=== PATIENT | female | born 1945 | race Caucasian/White ===

== ENCOUNTER 2016-09-28 17:42 | Emergency (ER) | payer MEDICARE ==
[~2016-09-28] VITALS: Ht 157.4 cm; Wt 45.4 kg
[~2016-09-28 17:42] MED LIST: AMPICILLIN500 MG PO; B121000 MCG/1 IM; BACTRIM DS 8001 TA1 PO; CIPRO250 MG PO; CIPROFLOXACIN500 MG PO; GABAPENTIN100 MG PO; GUAIFENESIN600 MG PO; HYDROCODONE BIT1 T11 PO; LEVAQUIN750 M1 PO; NEURONTIN300 MG PO; PREDNISONE10 MG PO; REMERON15 M2 PO; ULTRAM50 MG PO; VITAMIN D400 IU PO
[2016-09-28] MEDS ORDERED: NEURONTIN300 MG PO (17:56)
[2016-09-28 18:36] LABS: BASO % 0.5 % (0.0-1.0); EOS % 0.1 % (1.0-4.0); HEMATOCRIT 38.9 % (37.0-47.0); HEMOGLOBIN 12.5 g/dl (12.0-16.0); LYMPH # 0.7 10*3/uL (1.3-4.4); LYMPH % 8.3 % (27.0-41.0); MEAN CELL VOLUME 83.3 fl (81.0-99.0); MEAN CORPUSCULAR HGB 26.8 pg (27.0-31.0); MEAN CORPUSCULAR HGB CONC 32.1 g/dl (33.0-37.0); MEAN PLATELET VOLUME 11.2 fl (9.6-12.3); MONO # 0.3 10*3/uL (0.1-1.0); MONO % 3.8 % (3.0-9.0); NEUT # 6.8 10*3/uL (2.3-7.9); PLATELET COUNT AUTOMATED 213 10*3/uL (130-400); RED BLOOD COUNT 4.67 10*6/uL (4.10-5.10); RED CELL DISTRI WIDTH 13.4 % (0-14.5); WHITE BLOOD COUNT 7.9 10*3/uL (4.8-10.8)
[2016-09-28 18:51] LABS: ALBUMIN 3.4 gm/dl (3.1-4.5); ALKALINE PHOSPHATASE 99 U/L (45-117); BILIRUBIN, TOTAL 0.6 mg/dl (0.2-1.0); BUN 8 mg/dl (7-24); CARBON DIOXIDE 29 mmol/L (21-32); CHLORIDE 105 mmol/L (98-107); EST GLOM FILT AFRICAN AMERICAN > 60 ml/min; GLUCOSE 109 mg/dL (65-99); POTASSIUM 4.2 mmol/L (3.5-5.1); SGOT/AST 22 IU/L (3-35); SGPT/ALT 17 U/L (12-78); SODIUM 140 mmol/L (136-145)
[2016-09-28 19:46] LABS: BILIRUBIN NEGATIVE (NEGATIVE); BLOOD TRACE-INTACT (NEGATIVE); CLARITY CLEAR (CLEAR); COLOR YELLOW (YELLOW); GLUCOSE NEGATIVE (NEGATIVE); KETONE TRACE (NEGATIVE); LEUKO ESTERASE NEGATIVE (NEGATIVE); NITRITE NEGATIVE (NEGATIVE); PH 8.5 (5.0-9.0); PROTEIN NEGATIVE (NEGATIVE); SPECIFIC GRAVITY <= 1.005 (1.005-1.030); UROBILINOGEN 0.2 E.U./dl (0.2-1.0)
[2016-09-28 19:52] LABS: BACTERIA 1+
[2016-09-28 19:53] LABS: URINE REFLEX COMMENT YES (NO)
[2016-09-28] MEDS ORDERED: PERCOCET 325 MG1 TA2 PO (20:21)
[2016-09-28] MEDS ORDERED: FLOMAX0.4 MG PO (20:21)
[2016-09-28] MEDS ORDERED: ZOFRAN ODT4 MG SL (20:21)
== END 2016-09-28 20:27 | disposition home or self-care (01) ==
LOC: ED 17:42
PROVIDERS: Registered Nurse
DX: N20.0 Calculus of kidney (principal); N28.1 Cyst of kidney, acquired

== ENCOUNTER 2016-10-05 15:16 | Emergency (ER) | payer MEDICARE ==
[~2016-10-05] VITALS: Ht 157.4 cm; Wt 45.4 kg
[~2016-10-05 15:16] MED LIST changes: +FLOMAX0.4 MG PO; +PERCOCET 325 MG1 TA2 PO; +ZOFRAN ODT4 MG SL
[2016-10-05] MEDS ORDERED: ACETAMINOPHEN-O1 TAB PO (15:24)
== END 2016-10-05 17:32 | disposition home or self-care (01) ==
LOC: ED 15:16
DX: S90.31XA Contusion of right foot, initial encounter (principal); S90.01XA Contusion of right ankle, initial encounter; W01.0XXA Fall on same level from slipping, tripping and stumbling without subsequent striking against object, initial encounter; Y93.89 Activity, other specified; Y92.89 Other specified places as the place of occurrence of the external cause; Y99.8 Other external cause status

== ENCOUNTER → 2017-03-20 | Outpatient (CLI) | payer MEDICARE ==
[~2017-03-20] MED LIST changes: +ACETAMINOPHEN-O1 TAB PO
[2017-03-20 11:38] LABS: HEMATOCRIT 41.6 % (37.0-47.0); HEMOGLOBIN 13.4 g/dl (12.0-16.0); MEAN CELL VOLUME 83.9 fl (81.0-99.0); MEAN CORPUSCULAR HGB CONC 32.2 g/dl (33.0-37.0); MEAN PLATELET VOLUME 11.1 fl (9.6-12.3); RED BLOOD COUNT 4.96 10*6/uL (4.10-5.10); RED CELL DISTRI WIDTH 13.2 % (0-14.5); WHITE BLOOD COUNT 8.3 10*3/uL (4.8-10.8)
[2017-03-20 12:08] LABS: ALBUMIN 3.7 gm/dl (3.1-4.5); CREATININE 1.1 mg/dL (0.55-1.02); POTASSIUM 3.9 mmol/L (3.5-5.1); TOTAL PROTEIN 7.8 gm/dL (6.4-8.2)
[2017-03-20 12:15] LABS: THYROID STIM HORMONE (HS) 3.83 uIU/ml (0.358-4.75)
== END | disposition home or self-care (01) ==
LOC: LAB 10:44
PROVIDERS: Registered Nurse Flight
DX: Z01.818 Encounter for other preprocedural examination (principal); E55.9 Vitamin D deficiency, unspecified; Z79.899 Other long term (current) drug therapy

== ENCOUNTER 2018-02-19 12:52 | Emergency (ER) | payer MEDICARE ==
[~2018-02-19] VITALS: Ht 157.4 cm; Wt 47.6 kg
--- NOTE | ~2018-02-19 | EKG ---
[place], [place] ELECTROCARDIOGRAM REPORT NAME: JESSE VICTORIA UNIT #: [id number] ROOM: DOCTOR: EPIPHANY DRAFT REPORT BIRTHDATE: [birth year] [facility] Test Date: 2018-02-19 Test Time: 13:26:37 Pat Name: JESSE VICTORIA Department: Room: Gender: F Show Host/Hostess: Natalia Child : 1945 Requested By: MALKA BOSTON Order Number: [id number] Reading MD: Michael Amador MD Measurements Intervals [place] Rate: 109 P: 77 W[place]: 140 QRS: -54 QRSD: 100 T: 63 QT: 337 QTc: 454 Interpretive Statements Sinus tachycardia Multiform ventricular premature complexes Consider right atrial enlargement Low voltage, extremity and precordial leads Borderline ST depression, diffuse leads Baseline wander in lead(s) V5,V6 No previous ECG available for comparison Electronically Signed On 02-23-2018 12:03:48 PDT by Michael Amador MD CM:EKGRPT:ELECTROCARDIOGRAM REPORT [id number] MALKA HANLEY DRAFT REPORT MALKA BOSTON MD
[2018-02-19 13:39] LABS: BASO # 0.1 10*3/uL (0.0-0.1); BASO % 0.4 % (0.0-1.0); EOS # 0.2 10*3/uL (0.0-0.4); EOS % 1.1 % (1.0-4.0); HEMATOCRIT 44.5 % (37.0-47.0); HEMOGLOBIN 14.1 g/dl (12.0-16.0); LYMPH # 0.9 10*3/uL (1.3-4.4); LYMPH % 5.5 % (27.0-41.0); MEAN CELL VOLUME 84.9 fl (81.0-99.0); MEAN CORPUSCULAR HGB 26.9 pg (27.0-31.0); MEAN CORPUSCULAR HGB CONC 31.7 g/dl (33.0-37.0); MEAN PLATELET VOLUME 10.9 fl (9.6-12.3); MONO # 0.9 10*3/uL (0.1-1.0); MONO % 5.7 % (3.0-9.0); NEUT # 13.7 10*3/uL (2.3-7.9); PLATELET COUNT AUTOMATED 297 10*3/uL (130-400); RED BLOOD COUNT 5.24 10*6/uL (4.10-5.10); RED CELL DISTRI WIDTH 12.2 % (0-14.5); WHITE BLOOD COUNT 15.7 10*3/uL (4.8-10.8)
[2018-02-19 13:57] LABS: ALBUMIN 3.4 gm/dl (3.1-4.5); ALKALINE PHOSPHATASE 148 U/L (45-117); BUN 8 mg/dl (7-24); CHLORIDE 101 mmol/L (98-107); CREATININE 1.06 mg/dL (0.55-1.02); POTASSIUM 4.1 mmol/L (3.5-5.1); SGOT/AST 20 IU/L (3-35); SGPT/ALT 19 U/L (12-78); SODIUM 136 mmol/L (136-145); TOTAL PROTEIN 7.4 gm/dL (6.4-8.2)
[2018-02-19 14:04] LABS: TROPONIN I < 0.015 ng/ml (<0.045)
[2018-02-19] MEDS ORDERED: AVPAK AZITHROM250 MG PO (15:30)
[2018-02-19] MEDS ORDERED: PREDNISONE50 MG PO (15:30)
[2018-02-19] MEDS ORDERED: SPIRIVA -- 3018 MCG INH (15:30)
[2018-02-19] MEDS ORDERED: PROVENTIL HFA6.7 GM INH (15:30)
== END 2018-02-19 15:45 | disposition home or self-care (01) ==
LOC: ED 12:52
PROVIDERS: Emergency Medicine
DX: J44.1 Chronic obstructive pulmonary disease with (acute) exacerbation (principal); Z87.891 Personal history of nicotine dependence; Z79.899 Other long term (current) drug therapy; Z90.710 Acquired absence of both cervix and uterus

== ENCOUNTER → 2018-03-05 | Outpatient (CLI) | payer MEDICARE ==
[~2018-03-05] MED LIST changes: +AVPAK AZITHROM250 MG PO; +PREDNISONE50 MG PO; +PROVENTIL HFA6.7 GM INH; +SPIRIVA -- 3018 MCG INH
[2018-03-05 11:30] LABS: HEMATOCRIT 42.6 % (37.0-47.0); HEMOGLOBIN 13.5 g/dl (12.0-16.0); MEAN CELL VOLUME 84.2 fl (81.0-99.0); MEAN CORPUSCULAR HGB 26.7 pg (27.0-31.0); MEAN CORPUSCULAR HGB CONC 31.7 g/dl (33.0-37.0); MEAN PLATELET VOLUME 10.9 fl (9.6-12.3); RED BLOOD COUNT 5.06 10*6/uL (4.10-5.10); RED CELL DISTRI WIDTH 13.1 % (0-14.5); WHITE BLOOD COUNT 7.7 10*3/uL (4.8-10.8)
[2018-03-05 11:43] LABS: ALBUMIN 3.3 gm/dl (3.1-4.5); ALKALINE PHOSPHATASE 109 U/L (45-117); BUN 7 mg/dl (7-24); CHLORIDE 107 mmol/L (98-107); CHOLESTEROL 234 mg/dL (<200); CREATININE 1.02 mg/dL (0.55-1.02); HDL CHOLESTEROL 70 mg/dl (40-60); LDL CHOLESTEROL 128 mg/dL (9-159); SGOT/AST 21 IU/L (3-35); SGPT/ALT 21 U/L (12-78); SODIUM 141 mmol/L (136-145); TOTAL PROTEIN 7.2 gm/dL (6.4-8.2); TRIGLYCERIDES 181 mg/dl (<150); VLDL CHOLESTEROL 36 mg/dL (6-40)
== END | disposition home or self-care (01) ==
LOC: LAB 10:39
PROVIDERS: Registered Nurse Flight
DX: E78.00 Pure hypercholesterolemia, unspecified (principal); N18.3 Chronic kidney disease, stage 3 (moderate)

== ENCOUNTER 2018-04-12 16:30 | Emergency (ER) | payer MEDICARE ==
[~2018-04-12] VITALS: Wt 47.6 kg
== END 2018-04-12 19:16 | disposition home or self-care (01) ==
LOC: ED 16:30
DX: M87.851 Other osteonecrosis, right femur (principal); J44.9 Chronic obstructive pulmonary disease, unspecified; Z87.442 Personal history of urinary calculi; Z90.710 Acquired absence of both cervix and uterus; Z87.891 Personal history of nicotine dependence

== ENCOUNTER → 2018-06-04 | Outpatient (CLI) | payer MEDICARE ==
[2018-06-04 10:08] LABS: HEMATOCRIT 43.7 % (37.0-47.0); HEMOGLOBIN 13.6 g/dl (12.0-16.0); MEAN CELL VOLUME 84.9 fl (81.0-99.0); MEAN CORPUSCULAR HGB 26.4 pg (27.0-31.0); MEAN CORPUSCULAR HGB CONC 31.1 g/dl (33.0-37.0); MEAN PLATELET VOLUME 11.7 fl (9.6-12.3); RED BLOOD COUNT 5.15 10*6/uL (4.10-5.10); RED CELL DISTRI WIDTH 14.5 % (0-14.5); WHITE BLOOD COUNT 9.5 10*3/uL (4.8-10.8)
[2018-06-04 10:49] LABS: ALBUMIN 3.5 gm/dl (3.1-4.5); POTASSIUM 3.9 mmol/L (3.5-5.1); TOTAL PROTEIN 7.4 gm/dL (6.4-8.2)
[2018-06-04 10:53] LABS: CREATININE 1.18 mg/dL (0.55-1.02)
== END | disposition home or self-care (01) ==
LOC: LAB 09:25
PROVIDERS: Registered Nurse Flight
DX: E78.00 Pure hypercholesterolemia, unspecified (principal); N18.3 Chronic kidney disease, stage 3 (moderate)

== ENCOUNTER → 2019-02-04 | Outpatient (CLI) | payer MEDICARE ==
[2019-02-05 07:09] LABS: ALPHA-1-ANTITRYPSIN, SERUM 131 mg/dL (90-200)
[2019-02-07 15:06] LABS: PHENOTYPE MS (.)
== END | disposition home or self-care (01) ==
LOC: LAB 10:32
PROVIDERS: Internal Medicine Critical Care Medicine
DX: J44.9 Chronic obstructive pulmonary disease, unspecified (principal)

== ENCOUNTER → 2019-04-02 | Outpatient (CLI) | payer MEDICARE ==
[2019-04-02 11:02] LABS: HEMATOCRIT 43.1 % (37.0-47.0); HEMOGLOBIN 13.4 g/dl (12.0-16.0); MEAN CELL VOLUME 83.4 fl (81.0-99.0); MEAN CORPUSCULAR HGB 25.9 pg (27.0-31.0); MEAN CORPUSCULAR HGB CONC 31.1 g/dl (33.0-37.0); MEAN PLATELET VOLUME 11.6 fl (9.6-12.3); RED BLOOD COUNT 5.17 10*6/uL (4.10-5.10); RED CELL DISTRI WIDTH 13.9 % (0-14.5); WHITE BLOOD COUNT 6.3 10*3/uL (4.8-10.8)
[2019-04-02 11:29] LABS: ALBUMIN 3.3 gm/dl (3.1-4.5); ALKALINE PHOSPHATASE 110 U/L (45-117); BUN 5 mg/dl (7-24); CHLORIDE 110 mmol/L (98-107); CHOLESTEROL 166 mg/dL (<200); CREATININE 1.02 mg/dL (0.55-1.02); HDL CHOLESTEROL 53 mg/dl (40-60); LDL CHOLESTEROL 88 mg/dL (9-159); POTASSIUM 3.6 mmol/L (3.5-5.1); SGOT/AST 43 IU/L (3-35); SGPT/ALT 25 U/L (12-78); SODIUM 144 mmol/L (136-145); TOTAL PROTEIN 6.8 gm/dL (6.4-8.2); TRIGLYCERIDES 124 mg/dl (<150); VLDL CHOLESTEROL 25 mg/dL (6-40)
== END | disposition home or self-care (01) ==
LOC: LAB 10:31
PROVIDERS: Registered Nurse Flight
DX: E78.00 Pure hypercholesterolemia, unspecified (principal); N18.3 Chronic kidney disease, stage 3 (moderate)

== ENCOUNTER 2019-04-08 12:05 | Inpatient (IN) | payer MEDICARE ==
[~2019-04-08] VITALS: Ht 158.8 cm; Wt 44.9 kg
[2019-04-08 12:06] VITALS: BP 87/64
[2019-04-08 12:40] LABS: BILIRUBIN NEGATIVE (NEGATIVE); BLOOD TRACE-INTACT (NEGATIVE); CLARITY CLOUDY (CLEAR); COLOR YELLOW (YELLOW); GLUCOSE NEGATIVE (NEGATIVE); KETONE TRACE (NEGATIVE); LEUKO ESTERASE TRACE (NEGATIVE); NITRITE NEGATIVE (NEGATIVE); UROBILINOGEN 0.2 E.U./dl (0.2-1.0)
[2019-04-08 12:58] LABS: BACTERIA 4+
[2019-04-08 13:01] LABS: WBC 16-20 wbc/hpf (0-5)
[2019-04-08 13:02] LABS: HEMATOCRIT 45.8 % (37.0-47.0); HEMOGLOBIN 14.3 g/dl (12.0-16.0); MEAN CELL VOLUME 82.5 fl (81.0-99.0); MEAN CORPUSCULAR HGB 25.8 pg (27.0-31.0); MEAN CORPUSCULAR HGB CONC 31.2 g/dl (33.0-37.0); MEAN PLATELET VOLUME 12.5 fl (9.6-12.3); PLATELET COUNT AUTOMATED 183 10*3/uL (130-400); RED BLOOD COUNT 5.55 10*6/uL (4.10-5.10); WHITE BLOOD COUNT 11.1 10*3/uL (4.8-10.8)
[2019-04-08 13:12] LABS: ACT PARTIAL THROMBO TIME 27.5 SECONDS (20.0-32.1); INTERNATIONAL NORM RATIO 0.9 (2.0-3.5)
[2019-04-08 13:18] VITALS: BP 118/68
[2019-04-08 13:20] LABS: TOTAL CELLS COUNTED 100 #CELLS
[2019-04-08 13:21] LABS: PLATELET SUFFICIENCY NORMAL (NORMAL)
[2019-04-08 13:22] LABS: ALBUMIN 3.4 gm/dl (3.1-4.5); ALKALINE PHOSPHATASE 122 U/L (45-117); BUN 8 mg/dl (7-24); CHLORIDE 107 mmol/L (98-107); CPK 84 U/L (26-192); CREATININE 1.23 mg/dL (0.55-1.02); LIPASE 74 U/L (73-393); POTASSIUM 3.7 mmol/L (3.5-5.1); SGOT/AST 62 IU/L (3-35); SGPT/ALT 40 U/L (12-78); SODIUM 139 mmol/L (136-145); TOTAL PROTEIN 7.3 gm/dL (6.4-8.2)
[2019-04-08 13:23] LABS: TROPONIN I < 0.015 ng/ml (<0.045)
--- NOTE | 2019-04-08 13:29 | NUR ---
NOTIFIED BYLAB PTS LACTIC 2.1. DR MARTI NOTIFIED.
[2019-04-08 14:30] VITALS: BP 118/68
--- NOTE | 2019-04-08 15:20 | NUR ---
A 73, admitted to 4E, under the services of GERSON Smith DO with a diagnosis of UTI, GENERAL WEAKNESS, DEHYDRATION, PNUEMONITIS. Chief complaint is WEAKNESS, SOB. Patient arrived via from ER. Monitor applied. Initial assessment completed. Vital signs taken and recorded. GERSON SMITH DO notified of admission to the unit. Orders received. See assessment for past medical history, medications and allergies. Patient and/or family oriented to unit. 4E visitation policy reviewed. Clothing/patient valuable form completed. SIRAEL SOLIS
[2019-04-08 15:34] VITALS: BP 120/68
[2019-04-08 16:00] VITALS: BP 118/51
--- NOTE | 2019-04-08 19:44 | NUR ---
PT AWAKE IN BED, FAMILY AT BEDSIDE. NO COMPLAINTS VOICED AT PRESENT TIME. PT REQUESTING A SLEEPING PILL FOR TONIGHT. WILL REVIEW ORDERS AND NOTIFY DR OF REQUEST IF NEEDED. WILL CONTINUE TO MONITOR. CALL LIGHT IN REACH.
[2019-04-08 20:00] VITALS: BP 127/53
--- NOTE | 2019-04-08 21:11 | NUR ---
NOTIFIED OF PT'S REQUEST FOR A SLEEPING PILL. NEW ORDER RECEIVED FOR RESTORIL 15 MG QHS PRN.
--- NOTE | 2019-04-08 22:25 | NUR ---
RESTORIL NOT NEEDED AT THIS TIME. RN HAD TO WAKE PT UP TO GIVE SCHEDULED PM MEDS. WILL REASSESS NEED FOR RESTORIL AT LATER TIME.
[2019-04-09] VITALS: BP 103/58
--- NOTE | 2019-04-09 01:25 | NUR ---
PT ASLEEP IN BED. RESPIRATIONS EASY. NO S/S OF DISTRESS. WILL MONITOR. CALL LIGHT IN REACH.
[2019-04-09 06:55] LABS: HEMATOCRIT 36.5 % (37.0-47.0); HEMOGLOBIN 11.3 g/dl (12.0-16.0); MEAN CELL VOLUME 82.6 fl (81.0-99.0); MEAN CORPUSCULAR HGB 25.6 pg (27.0-31.0); MEAN PLATELET VOLUME 12.7 fl (9.6-12.3); PLATELET COUNT AUTOMATED 160 10*3/uL (130-400); RED BLOOD COUNT 4.42 10*6/uL (4.10-5.10); RED CELL DISTRI WIDTH 14.1 % (0-14.5); WHITE BLOOD COUNT 10.8 10*3/uL (4.8-10.8)
[2019-04-09 07:13] LABS: ALBUMIN 2.4 gm/dl (3.1-4.5); BUN 9 mg/dl (7-24); CHLORIDE 113 mmol/L (98-107); POTASSIUM 3.3 mmol/L (3.5-5.1); SODIUM 142 mmol/L (136-145)
[2019-04-09 07:22] LABS: ALKALINE PHOSPHATASE 78 U/L (45-117); CHOLESTEROL 94 mg/dL (<200); CREATININE 0.86 mg/dL (0.55-1.02); FREE T4 1.29 ng/dl (0.76-1.46); HDL CHOLESTEROL 47 mg/dl (40-60); LDL CHOLESTEROL 37 mg/dL (9-159); PHOSPHOROUS 1.6 mg/dL (2.5-4.9); SGOT/AST 36 IU/L (3-35); SGPT/ALT 28 U/L (12-78); THYROID STIM HORMONE (HS) 0.272 uIU/ml (0.358-4.75); TOTAL PROTEIN 5.5 gm/dL (6.4-8.2); TRIGLYCERIDES 48 mg/dl (<150); VLDL CHOLESTEROL 10 mg/dL (6-40)
[2019-04-09 07:32] LABS: PLATELET SUFFICIENCY NORMAL (NORMAL); TOTAL CELLS COUNTED 100 #CELLS
[2019-04-09 07:56] LABS: VITAMIN D, 25-HYDROXY 21.6 ng/mL (30-100)
[2019-04-09 08:00] VITALS: BP 112/54
--- NOTE | 2019-04-09 08:02 | NUR ---
Nursing screen and Occupational Therapy referral received. Thank you. Clover Peñaloza OTR/L
--- NOTE | 2019-04-09 08:03 | NUR ---
PHYSICAL THERAPY Screen received as well as orders for PT will follow, thank you Dayanna Cortes PT
--- NOTE | 2019-04-09 08:45 | NUR ---
DR ORDAZ AWARE OF NEW CONSULT.
--- NOTE | 2019-04-09 10:30 | NUR ---
Workers Compensation Claims Examiner in to talk to patient. Patient states lives at home with her son who just moved in with her from [place]. There are 14 steps in the home. Physician: Adriano Mcclain [facility]: [facility] services: none Patient's level of ADLs: MINIMAL ASSIST Patient has working utilities: yes DME: cane occasionally Follow-up physician's appointment after d/c: will be made by the hospitalist nurse director upon discharge Does patient want to access PORTAL?: no Discharge plan discussed with patient. She lives at home with her son who just moved in with her from [place]. She is independent in her ADLs and occasionally ambulates with a cane. Discussed home health care services and short term SNF and she denies either. When medically stable she will be discharged to home. Her son will provide transportation on discharge. BRYANNA GIBSON
[2019-04-09 12:00] VITALS: BP 135/60
[2019-04-09 16:00] VITALS: BP 114/61
[2019-04-09 20:00] VITALS: BP 120/66
[2019-04-10] VITALS: BP 116/63
[2019-04-10 00:30] VITALS: BP 124/61
--- NOTE | 2019-04-10 00:35 | NUR ---
PT MEDICATED WITH PO RESTORIL PER PRN ORDER FOR C/O INSOMNIA. WILL MONITOR EFFECTIVENESS. CALL LIGHT LEFT IN REACH. BED ALARM INTACT.
--- NOTE | 2019-04-10 01:30 | NUR ---
EARLIER RESTORIL APPEARS EFFECTIVE. PT ASLEEP IN BED. RESPIRATIONS EASY. NO S/S OF DISTRESS NOTED. WILL MONITOR. CALL LIGHT IN REACH.
[2019-04-10 07:30] VITALS: BP 116/60
[2019-04-10 08:18] LABS: HEMATOCRIT 37.7 % (37.0-47.0); HEMOGLOBIN 11.8 g/dl (12.0-16.0); MEAN CORPUSCULAR HGB CONC 31.3 g/dl (33.0-37.0); MEAN PLATELET VOLUME 12.7 fl (9.6-12.3); PLATELET COUNT AUTOMATED 188 10*3/uL (130-400); RED BLOOD COUNT 4.54 10*6/uL (4.10-5.10); RED CELL DISTRI WIDTH 14.8 % (0-14.5); WHITE BLOOD COUNT 17.2 10*3/uL (4.8-10.8)
[2019-04-10 08:40] LABS: TOTAL CELLS COUNTED 100 #CELLS
[2019-04-10 08:41] LABS: ALBUMIN 2.5 gm/dl (3.1-4.5); ALKALINE PHOSPHATASE 77 U/L (45-117); BUN 13 mg/dl (7-24); CHLORIDE 115 mmol/L (98-107); CREATININE 0.97 mg/dL (0.55-1.02); PHOSPHOROUS 2.6 mg/dL (2.5-4.9); PLATELET SUFFICIENCY NORMAL (NORMAL); SGOT/AST 37 IU/L (3-35); SGPT/ALT 30 U/L (12-78); SODIUM 144 mmol/L (136-145); TOTAL PROTEIN 5.8 gm/dL (6.4-8.2)
--- NOTE | 2019-04-10 09:21 | NUR ---
PHYSICAL THERAPY Maxim completed full details to follow moderate level of complexity 17472 recomned SNF at discharge. PT to work on transfers, Amb with AD, strengthening balance and safety. Dayanna Cortes PT
--- NOTE | 2019-04-10 09:38 | NUR ---
Occupational Therapy evaluation completed on 4 with full eval to follow. Recommend OT per POC for ADl training,safety, functional mobility ,stand tolerance in ADLS, proper breathing and posture, relaxation education, and activity tolerance in ADLs. Recommend SNF to enable return home at prior level of independence. Moderate complexity level 29638. THank you. Clover Peñaloza OTR/L
--- NOTE | 2019-04-10 10:29 | NUR ---
PT COMPLAIN OF ANXIETY AND "SHAKING", XANAX GIVEN. WILL MONITOR FOR EFFECTIVENESS
--- NOTE | 2019-04-10 11:00 | NUR ---
Set Up Worker in to see patient. Discussed short term SNF as therapy suggests more therapy before returning home and she is agreeable. When provided with a list of facilities she chose [facility] as she had a friend stay there before and she liked it. nurse discharge planner notified.
--- NOTE | 2019-04-10 11:30 | NUR ---
Patient requesting a referral to [facility] for rehab. Contacted facililty and faxed referral. Requires a 3 night stay. waiting on review.
[2019-04-10 12:00] VITALS: BP 124/74
--- NOTE | 2019-04-10 12:59 | NUR ---
Patient has been accepted to [facility], requires a 3 night stay. Patient can go tomorrow, 04/11/19 if medically stable for discharge.
--- NOTE | 2019-04-10 13:22 | NUR ---
OT NOTE Attempted to see pt this P.M. for OT session and upon arrival pt was eating her lunch. Will check back at a later time/date and continue with POC as able. CHUYITA Miller/Sindi
--- NOTE | 2019-04-10 14:15 | NUR ---
IV started left forearm with #24 protective cath after 0 attempts. Site prepped with Chloroprep. Sterile dressing applied. Patient tolerated procedure well. iv right ac removed and dressing applied. TOMER COOMBS
[2019-04-10 16:00] VITALS: BP 120/64
[2019-04-10 20:00] VITALS: BP 123/64
[2019-04-11] VITALS: BP 105/55
--- NOTE | 2019-04-11 06:34 | NUR ---
PRN XANAX GIVEN FOR PT COMPLAINTS OF ANXIETY. CALL LIGHT WITHIN REACH,WILL EUNICE
[2019-04-11 07:04] LABS: HEMATOCRIT 35.7 % (37.0-47.0); HEMOGLOBIN 11.2 g/dl (12.0-16.0); MEAN CELL VOLUME 82.8 fl (81.0-99.0); MEAN CORPUSCULAR HGB CONC 31.4 g/dl (33.0-37.0); MEAN PLATELET VOLUME 12.9 fl (9.6-12.3); PLATELET COUNT AUTOMATED 187 10*3/uL (130-400); RED BLOOD COUNT 4.31 10*6/uL (4.10-5.10); RED CELL DISTRI WIDTH 14.9 % (0-14.5); WHITE BLOOD COUNT 13.7 10*3/uL (4.8-10.8)
[2019-04-11 07:26] LABS: BUN 19 mg/dl (7-24); CHLORIDE 116 mmol/L (98-107); CREATININE 0.86 mg/dL (0.55-1.02); PHOSPHOROUS 1.6 mg/dL (2.5-4.9); POTASSIUM 4.4 mmol/L (3.5-5.1); SODIUM 144 mmol/L (136-145)
[2019-04-11 07:43] LABS: SCHISTOCYTES FEW; TOTAL CELLS COUNTED 100 #CELLS
--- NOTE | 2019-04-11 07:43 | NUR ---
Patient has been accepted to [facility], PASS/RR complete, 3 night stay complete. Patient ok to go if medically stable for discharge.
[2019-04-11 07:44] LABS: PLATELET SUFFICIENCY NORMAL (NORMAL)
[2019-04-11 08:00] VITALS: BP 110/60
--- NOTE | 2019-04-11 09:00 | NUR ---
Cupola Charger in to see patient. No new needs or request at this time. When medically stable she will be discharged to [facility]. party planner following. Dr. Kelly consult, sputum culture pending, -, treating pneumonia with rocephin, zithromax, duonebs, and decreasing solumedrol dose.
--- NOTE | 2019-04-11 10:35 | NUR ---
OT NOTE Pt was seen this A.M. 1:1 for 15 minute OT session. Upon arrival pt was supine in bed. Pt identified by name and and had no complaints at this time. Pt transferred supine to sit EOB with Fatimah for assist with UB. Sit to stand completed from bed level with Fatimah, upon inital rise pt had LOB backwards that required maxA to correct. Functional mobility was then completed to the bathroom with Fatimah [employer], aprox half way to the bathroom pt had an episode of B knees buckling requiring modA to correct. There she transferred on/off standard commode with CGA and use of grab bar for UE support. Clothing management completed with CGA due to being unsteady and toilet hygiene completed with SBA while seated. Pt then stood sink side while washing her hands with CGA for safety. Functional mobility was then completed back to the EOB with Fatimah [employer]. There she transferred supine to sit EOB with Fatimah and was repositioned with modA X 2. Pt's SpO2 was 96% and heart rate 90 bpm. Pt was left supine in bed with call light in hand, tray table in place, and bed alarm activated for safety. Continue with rec D/C plan to SNF. YAKELIN Miller
--- NOTE | 2019-04-11 10:45 | NUR ---
PHYSICAL THERAPY Patient presented to therapy in supine with head of bed elevated and report of no pain or other complaints. Patient gives informed consent for treatment. Patient was identified by name and on wristband. Patient is not on spO2 at this time. Patient performed supine to sitting at EOB transfer with SBA. Patient sit to stand from EOB with CGA X 1 and upon standing the patient lost her balance to the rear back on her heels requiring MIN A X 1 to correct balance. Patient ambulated with VENUE ATTENDANT X 2 for 50' x 2 with multiple instances where she lost her balance and required MIN A x 1 to correct. Patient O2 sats where taken and recorded as 02 sat = 96% and pulse= 90 before ambulating. Patient vitals taken again after ambulating and were recorded as O2= 90% and pulse = 94. Patient performed transfer on and off low chair with CGA x 1. Patient transferred back to supine in bed with SBA. Patient was left in supine in bed with head of bed elevated, call light within reach and bed alarm activated. Patient was 1:1 with this AIRFRAME AND POWERPLANT MECHANIC for 18 minutes total. CAYLA GARLAND AIRFRAME AND POWERPLANT MECHANIC
[2019-04-11 12:00] VITALS: BP 132/56
--- NOTE | 2019-04-11 14:36 | NUR ---
PHYSICAL THERAPY Patient declined therapy this PM due to being fatigued and needing to rest. Will check back at a later date. CAYLA GARLAND PUBLIC HEALTH DOCTOR
[2019-04-11 16:00] VITALS: BP 121/62; BP 123/82
[2019-04-11 20:00] VITALS: BP 142/75
[2019-04-12] VITALS: BP 130/61
[2019-04-12 06:33] LABS: HEMOGLOBIN 12.5 g/dl (12.0-16.0); MEAN CELL VOLUME 83.5 fl (81.0-99.0); MEAN CORPUSCULAR HGB 25.5 pg (27.0-31.0); MEAN CORPUSCULAR HGB CONC 30.5 g/dl (33.0-37.0); MEAN PLATELET VOLUME 12.5 fl (9.6-12.3); PLATELET COUNT AUTOMATED 205 10*3/uL (130-400); RED BLOOD COUNT 4.91 10*6/uL (4.10-5.10); WHITE BLOOD COUNT 10.9 10*3/uL (4.8-10.8)
--- NOTE | 2019-04-12 06:39 | NUR ---
PRN XANAX GIVEN FOR PT COMPLAINTS OF ANXIETY AND SHAKES. CALL LIGHT WITHIN REACH, WILL MONITOR
[2019-04-12 07:02] LABS: BUN 18 mg/dl (7-24); CHLORIDE 112 mmol/L (98-107); CREATININE 0.95 mg/dL (0.55-1.02); POTASSIUM 4.4 mmol/L (3.5-5.1); SODIUM 142 mmol/L (136-145)
[2019-04-12 07:15] LABS: OVALOCYTES FEW; PLASMA CELL 1 % (0-0); PLATELET SUFFICIENCY NORMAL (NORMAL); POLYCHROMASIA SLIGHT; TOTAL CELLS COUNTED 100 #CELLS
--- NOTE | 2019-04-12 07:40 | NUR ---
VITALS STABLE. A&O X3, NEIL,CAPILLARY REFILL <3 SECONDS. SKIN WARM DRY PINK AND INTACT. + PERIPHERAL PULSES. NO COMPLAINTS OF PAIN. HEART SOUNDS NORMAL, RATE 76, WEAK. RALES IN UPPER LOBE OF LEFT LUNG, OTHERWISE CLEAR, RATE OF 18. PO2 100% RA. NON-PRODUCTIVE COUGH. ABDOMEN SOFT, NON-DISTENDED, NON-TENDER. LEFT WRIST IV SITE DRY AND INTACT, NO S/S OF INFECTION. NO OTHER COMPLAINTS AT THIS TIME, WILL CONTINUE TO MONITOR. ABHI CONTRERASCC
[2019-04-12 08:00] VITALS: BP 124/72
--- NOTE | 2019-04-12 09:10 | NUR ---
OT NOTE Pt was seen this A.M. 1:1 for 20 minute OT session. Upon arrival pt was supine in bed. Pt identified by name and and had no complaints at this time. Pt's resting SpO2 was 96% and heart rate 97 bpm. Pt transferred supine to sit EOB with Fatimah. While sitting EOB requested for pt to gabe B socks. Pt was able to complete with Fatimah due to requiring Fatimah to correct L lateral and backwards LOB that occured. Sit to stand completed from bed level with Fatimah and use of w/w. Functional mobility was then completed into the bathroom with CGA and use of w/w. Pt had bouts of unsteady gait that required Fatimah to correct. Pt transferred on/off standard commode with CGA and use of grab bar. She then stood sink side while washing her hands, while standing sink side without UE support pt had LOB backwards that required Fatimah to correct. Throughout pt was educated on pursed lip breathing and pt had poor carry over. SpO2 reading 97% and heart rate 99 bpm. Pt transferred back into bed sit to supine with Fatimah. There she was left with call light in hand, tray table in place, and bed alarm activated for safety. Continue with rec D/C plan to SNF. YAKELIN Miller
[2019-04-12] MEDS ORDERED: PREDNISONE10 MG PO (09:33)
[2019-04-12] MEDS ORDERED: ALPRAZOLAM0.25 M2 PO (09:33)
[2019-04-12] MEDS ORDERED: ZITHROMAX500 MG PO (09:33)
--- NOTE | 2019-04-12 09:56 | NUR ---
PHYSICAL THERAPY Patient presented to therapy in supine with head of bed elevated and report of feeling better this morning than she was yesterday. Patient gives informed consent for treatment. Patient was identified by name and on wristband. Patient performed supine to sitting on EOB with MIN A X 1. Patient sat on EOB and then suddenly fell to the patient's left and caught herself onto mattress. Patient required MIN A x 1 to correct posture to upright position in sitting. Patient sit to stand from EOB with CGA X 1. Patient ambulated with Wh Walker and CGA X 1 for 60' x 3 with no LOB or SOB. Patient transferred back to supine in bed with SBA. Patient was left in supine in bed with call light within reach, bed alarm activated, and head of bed elevated. O2 SATS before ambulating were 96% and pulse at 97. O2 SATS post ambulating were recorded as 97% and pulse at 99. Patient was 1:1 with this FEED MILL OPERATOR for 19 minutes total. in room at 8:41 am. out at 9:00 am. Bill Paige FEED MILL OPERATOR
--- NOTE | 2019-04-12 10:24 | NUR ---
WINDOWS SYSTEMS ARCHITECT notified of the patient discharge. WINDOWS SYSTEMS ARCHITECT spoke with MARCELO Schmitt and explained [facility] can quill picking machine operator the patient at 11:30am or so per Jie. MARCELO Schmitt stated this was fine. WINDOWS SYSTEMS ARCHITECT reached out to patients Mother Danitza, she is aware of the patients transport time. WINDOWS SYSTEMS ARCHITECT will fax discharge orders to Jie. -MARIA ISABEL Rehman
--- NOTE | 2019-04-12 11:08 | NUR ---
NURSE TO NURSE REPORT GIVEN TO ROHITH RANGEL AT [facility]. ABHI CONTRERASCC
[2019-04-12 12:00] VITALS: BP 134/71
--- NOTE | 2019-04-12 12:16 | NUR ---
Discharge instructions reviewed with patient/family. Patient receptive and verbalizes understanding. Follow-up care arranged. Written instructions given to patient/family. Discharged via [employer] van. Hep lock removed. Condition stable. Patti Nash [facility] EL[facility]ABETH MONK
--- NOTE | 2019-04-12 14:48 | NUR ---
PHYSICAL THERAPY CO-SIGN I approve of the Physical Therapy notes written above. Dayanna Cortes PT
--- NOTE | 2019-04-16 07:35 | NUR ---
OCCUPATIONAL THERAPY CO-SIGN I approve of the Occupational Therapy notes written above. KENYA MOMIN OTR/Sindi
== END 2019-04-12 12:10 | disposition other institution (70) | DRG 871 ==
LOC: ED 12:05 → 4E 14:30 → EDHOLD 14:30 → 5E 14:36 → EDHOLD 14:37 → 4E 15:18 → 5E 04-10 18:33
PROVIDERS: Emergency Medicine; Internal Medicine; Registered Nurse; ADMIT Internal Medicine
DX: A41.9 Sepsis, unspecified organism (principal); J18.9 Pneumonia, unspecified organism; J96.21 Acute and chronic respiratory failure with hypoxia; E43 Unspecified severe protein-calorie malnutrition; J44.1 Chronic obstructive pulmonary disease with (acute) exacerbation; N39.0 Urinary tract infection, site not specified; N17.9 Acute kidney failure, unspecified; E87.2 Acidosis; Z68.1 Body mass index [BMI] 19.9 or less, adult; J44.0 Chronic obstructive pulmonary disease with (acute) lower respiratory infection; J45.901 Unspecified asthma with (acute) exacerbation; E86.0 Dehydration; D72.810 Lymphocytopenia; E86.9 Volume depletion, unspecified; Z90.710 Acquired absence of both cervix and uterus; Z87.891 Personal history of nicotine dependence; Z79.899 Other long term (current) drug therapy; J20.9 Acute bronchitis, unspecified; Z96.641 Presence of right artificial hip joint; Z82.49 Family history of ischemic heart disease and other diseases of the circulatory system

== ENCOUNTER 2020-09-10 18:05 | Inpatient (IN) | payer MEDICARE ==
[~2020-09-10] VITALS: Ht 165.1 cm; Wt 62.6 kg
[~2020-09-10 18:05] MED LIST changes: +ALPRAZOLAM0.25 M2 PO; +ZITHROMAX500 MG PO
[2020-09-10 18:17] LABS: BASO # 0.1 10*3/uL (0.0-0.1); EOS # 0.2 10*3/uL (0.0-0.4); HEMATOCRIT 36.7 % (37.0-47.0); LYMPH # 1.2 10*3/uL (1.3-4.4); LYMPH % 16.2 % (27.0-41.0); MEAN CELL VOLUME 83.6 fl (81.0-99.0); MEAN CORPUSCULAR HGB 26.2 pg (27.0-31.0); MEAN CORPUSCULAR HGB CONC 31.3 g/dl (33.0-37.0); MEAN PLATELET VOLUME 10.5 fl (9.6-12.3); MONO # 0.6 10*3/uL (0.1-1.0); MONO % 7.8 % (3.0-9.0); NEUT # 5.3 10*3/uL (2.3-7.9); NEUT % 71.7 % (47.0-73.0); PLATELET COUNT AUTOMATED 227 10*3/uL (130-400); RED BLOOD COUNT 4.39 10*6/uL (4.10-5.10); RED CELL DISTRI WIDTH 12.9 % (0-14.5); WHITE BLOOD COUNT 7.3 10*3/uL (4.8-10.8)
[2020-09-10 18:22] VITALS: BP 144/79
[2020-09-10 18:28] LABS: ACT PARTIAL THROMBO TIME 24.5 SECONDS (20.0-32.1)
[2020-09-10 18:44] LABS: ALBUMIN 3.3 gm/dl (3.1-4.5); ALKALINE PHOSPHATASE 97 U/L (45-117); BUN 13 mg/dl (7-24); CHLORIDE 109 mmol/L (98-107); POTASSIUM 3.4 mmol/L (3.5-5.1); SGOT/AST 9 IU/L (3-35); SGPT/ALT 13 U/L (12-78); SODIUM 142 mmol/L (136-145); TOTAL PROTEIN 6.9 gm/dL (6.4-8.2)
[2020-09-10 18:51] LABS: TROPONIN I < 0.015 ng/ml (<0.045)
[2020-09-10 19:15] VITALS: BP 130/78
[2020-09-10 23:00] VITALS: BP 134/82
[2020-09-11] VITALS (7 sets, daily range): BP systolic 125–189; BP diastolic 50–68
[2020-09-11 06:23] LABS: BASO # 0.1 10*3/uL (0.0-0.1); BASO % 1.4 % (0.0-1.0); EOS # 0.2 10*3/uL (0.0-0.4); EOS % 4.2 % (1.0-4.0); HEMATOCRIT 33.5 % (37.0-47.0); LYMPH # 1.3 10*3/uL (1.3-4.4); LYMPH % 21.8 % (27.0-41.0); MEAN CELL VOLUME 84.2 fl (81.0-99.0); MEAN CORPUSCULAR HGB 26.4 pg (27.0-31.0); MEAN CORPUSCULAR HGB CONC 31.3 g/dl (33.0-37.0); MEAN PLATELET VOLUME 11.3 fl (9.6-12.3); MONO # 0.5 10*3/uL (0.1-1.0); MONO % 9.1 % (3.0-9.0); NEUT # 3.6 10*3/uL (2.3-7.9); NEUT % 63.2 % (47.0-73.0); PLATELET COUNT AUTOMATED 188 10*3/uL (130-400); RED BLOOD COUNT 3.98 10*6/uL (4.10-5.10); WHITE BLOOD COUNT 5.7 10*3/uL (4.8-10.8)
[2020-09-11 06:27] LABS: ALBUMIN 2.8 gm/dl (3.1-4.5); CREATININE 1.11 mg/dL (0.55-1.02); POTASSIUM 4.2 mmol/L (3.5-5.1); TOTAL PROTEIN 5.8 gm/dL (6.4-8.2)
[2020-09-11 06:37] LABS: ACT PARTIAL THROMBO TIME 25.9 SECONDS (20.0-32.1)
[2020-09-12] VITALS: BP 134/63
[2020-09-12 05:53] LABS: BASO # 0.1 10*3/uL (0.0-0.1); BASO % 0.7 % (0.0-1.0); EOS # 0.1 10*3/uL (0.0-0.4); EOS % 1.2 % (1.0-4.0); HEMATOCRIT 37.5 % (37.0-47.0); LYMPH # 0.8 10*3/uL (1.3-4.4); LYMPH % 9.7 % (27.0-41.0); MEAN CELL VOLUME 82.8 fl (81.0-99.0); MEAN CORPUSCULAR HGB 26.3 pg (27.0-31.0); MEAN CORPUSCULAR HGB CONC 31.7 g/dl (33.0-37.0); MEAN PLATELET VOLUME 11.4 fl (9.6-12.3); MONO # 0.5 10*3/uL (0.1-1.0); MONO % 5.5 % (3.0-9.0); NEUT # 6.8 10*3/uL (2.3-7.9); NEUT % 82.7 % (47.0-73.0); PLATELET COUNT AUTOMATED 207 10*3/uL (130-400); RED BLOOD COUNT 4.53 10*6/uL (4.10-5.10); RED CELL DISTRI WIDTH 12.7 % (0-14.5); WHITE BLOOD COUNT 8.2 10*3/uL (4.8-10.8)
[2020-09-12 06:04] LABS: BUN 18 mg/dl (7-24); CHLORIDE 112 mmol/L (98-107); CREATININE 0.86 mg/dL (0.55-1.02); POTASSIUM 4.1 mmol/L (3.5-5.1); SODIUM 143 mmol/L (136-145)
[2020-09-12 08:00] VITALS: BP 112/50
[2020-09-12 12:00] VITALS: BP 130/56
[2020-09-12 16:00] VITALS: BP 135/59
[2020-09-12 20:13] VITALS: BP 139/59
[2020-09-12 23:50] VITALS: BP 129/58
[2020-09-13 06:15] LABS: BASO # 0.1 10*3/uL (0.0-0.1); BASO % 0.9 % (0.0-1.0); EOS # 0.2 10*3/uL (0.0-0.4); HEMATOCRIT 34.7 % (37.0-47.0); LYMPH # 1.1 10*3/uL (1.3-4.4); LYMPH % 19.6 % (27.0-41.0); MEAN CORPUSCULAR HGB CONC 31.7 g/dl (33.0-37.0); MEAN PLATELET VOLUME 11.5 fl (9.6-12.3); MONO # 0.5 10*3/uL (0.1-1.0); MONO % 8.9 % (3.0-9.0); NEUT # 3.7 10*3/uL (2.3-7.9); NEUT % 66.4 % (47.0-73.0); PLATELET COUNT AUTOMATED 218 10*3/uL (130-400); RED BLOOD COUNT 4.23 10*6/uL (4.10-5.10); RED CELL DISTRI WIDTH 12.8 % (0-14.5); WHITE BLOOD COUNT 5.5 10*3/uL (4.8-10.8)
[2020-09-13 07:43] VITALS: BP 120/60
[2020-09-13] MEDS ORDERED: OMEPRAZOLE40 MG PO (11:08)
[2020-09-13] MEDS ORDERED: Carafate1 GM PO (11:08)
== END 2020-09-13 12:14 | disposition home or self-care (01) | DRG 383 ==
LOC: ED 18:05 → 5E 19:10 → EDHOLD 19:10 → 5E 22:07
PROVIDERS: Emergency Medicine; Hospitalist; Internal Medicine Gastroenterology; ADMIT Student in an Organized Health Care Education/Training Program; ATTEND Student in an Organized Health Care Education/Training Program
PROC: 0D718ZZ Dilation of Upper Esophagus, Via Natural or Artificial Opening Endoscopic (ICD-10-PCS; principal; 2020-09-11)
PROC: 0D768ZZ Dilation of Stomach, Via Natural or Artificial Opening Endoscopic (ICD-10-PCS; 2020-09-11)
PROC: 0DB78ZX Excision of Stomach, Pylorus, Via Natural or Artificial Opening Endoscopic, Diagnostic (ICD-10-PCS; 2020-09-11)
DX: K25.9 Gastric ulcer, unspecified as acute or chronic, without hemorrhage or perforation (principal); N17.0 Acute kidney failure with tubular necrosis; E44.0 Moderate protein-calorie malnutrition; K31.1 Adult hypertrophic pyloric stenosis; K29.70 Gastritis, unspecified, without bleeding; K22.2 Esophageal obstruction; R13.10 Dysphagia, unspecified; F41.1 Generalized anxiety disorder; M81.8 Other osteoporosis without current pathological fracture; E87.8 Other disorders of electrolyte and fluid balance, not elsewhere classified; D64.9 Anemia, unspecified; E87.6 Hypokalemia; J43.9 Emphysema, unspecified; E67.3 Hypervitaminosis D; K21.9 Gastro-esophageal reflux disease without esophagitis; Z87.891 Personal history of nicotine dependence; Z87.442 Personal history of urinary calculi; Z87.01 Personal history of pneumonia (recurrent); Z87.440 Personal history of urinary (tract) infections; Z90.710 Acquired absence of both cervix and uterus; Z83.3 Family history of diabetes mellitus; Z82.49 Family history of ischemic heart disease and other diseases of the circulatory system; Z85.841 Personal history of malignant neoplasm of brain; Z68.22 Body mass index [BMI] 22.0-22.9, adult

== ENCOUNTER 2021-07-11 15:18 | Emergency (ER) | payer MEDICARE, MEDICAID ==
[~2021-07-11] VITALS: Ht 157.4 cm; Wt 44.5 kg
[~2021-07-11 15:18] MED LIST changes: +Carafate1 GM PO; +MACRODANTIN50 MG PO; +OMEPRAZOLE40 MG PO; +ZOFRAN4 MG PO
[2021-07-11 15:54] LABS: HEMATOCRIT 37.8 % (37.0-47.0); MEAN CELL VOLUME 81.5 fl (81.0-99.0); MEAN CORPUSCULAR HGB 26.7 pg (27.0-31.0); MEAN CORPUSCULAR HGB CONC 32.8 g/dl (33.0-37.0); MEAN PLATELET VOLUME 10.6 fl (9.6-12.3); PLATELET COUNT AUTOMATED 314 10*3/uL (130-400); RED BLOOD COUNT 4.64 10*6/uL (4.10-5.10); RED CELL DISTRI WIDTH 16.1 % (0-14.5); WHITE BLOOD COUNT 14.4 10*3/uL (4.8-10.8)
[2021-07-11 15:55] LABS: MANUAL DIFF REFLEX YES
[2021-07-11 16:05] LABS: ACT PARTIAL THROMBO TIME 28.9 SECONDS (20.0-32.1)
[2021-07-11 16:11] LABS: CREATININE 1.41 mg/dL (0.55-1.02); POTASSIUM 3.4 mmol/L (3.5-5.1); TOTAL PROTEIN 7.4 gm/dL (6.4-8.2)
[2021-07-11 16:18] LABS: PLATELET SUFFICIENCY NORMAL (NORMAL); TOTAL CELLS COUNTED 100 #CELLS
== END 2021-07-11 20:43 | disposition short-term general hospital (02) ==
LOC: ED 15:18
PROVIDERS: Emergency Medicine
DX: A41.9 Sepsis, unspecified organism (principal); R65.20 Severe sepsis without septic shock; N20.0 Calculus of kidney; J44.9 Chronic obstructive pulmonary disease, unspecified; Z88.1 Allergy status to other antibiotic agents; Z90.710 Acquired absence of both cervix and uterus; Z98.890 Other specified postprocedural states

== ENCOUNTER → 2021-10-28 | Outpatient (CLI) | payer MEDICARE ==
[~2021-10-28] MED LIST changes: +CARAFATE1 G1 PO; +OXYGEN NAS; +PROTONIX40 MG PO; +ZOLOFT50 MG PO
[2021-11-07 00:05] LABS: BUSHITE 0.57 ratio (0.00-3.00); CALCIUM OXALATE 4.89 ratio (0.00-6.00); CALCIUM, URINE 4.8 mg/dL (Not Estab.); CALCIUM, URINE 44.4 mg/24 hr (0.0-320.0); CITRIC ACID (CITRATE) 8 mg/24 hr (320-1240); CREATININE, URINE 334.9 mg/24 hr (800.0-1800.0); CREATININE, URINE 36.2 mg/dL (Not Estab.); MAGNESIUM, URINE 1.9 mg/dL (Not Estab.); MONOSODIUM URATE 0.66 ratio (0.00-4.00); OSMOLALITY, URINE 247 (300-900); SODIUM, URINE 41 (39-258); SODIUM, URINE 44 mmol/L (Not Estab.); STRUVITE 0.02 ratio (0.00-1.00); URIC ACID 0.09 ratio (0.00-1.20); pH 24 HR URINE 6.8 (4.5-8.0)
== END | disposition home or self-care (01) ==
LOC: LAB 12:00
PROVIDERS: ATTEND Urology
DX: N20.0 Calculus of kidney (principal); E83.50 Unspecified disorder of calcium metabolism; R31.9 Hematuria, unspecified

== ENCOUNTER 2021-10-29 14:01 | Emergency (ER) | payer MEDICARE ==
[~2021-10-29] VITALS: Ht 157.4 cm; Wt 37.6 kg
== END 2021-10-29 18:23 | disposition home or self-care (01) ==
LOC: ED 14:01
DX: S42.035A Nondisplaced fracture of lateral end of left clavicle, initial encounter for closed fracture (principal); Z88.1 Allergy status to other antibiotic agents; Z79.899 Other long term (current) drug therapy; Z90.710 Acquired absence of both cervix and uterus; Z87.891 Personal history of nicotine dependence; W07.XXXA Fall from chair, initial encounter; Y93.89 Activity, other specified; Y92.89 Other specified places as the place of occurrence of the external cause; Y99.8 Other external cause status

== ENCOUNTER → 2021-10-29 | Outpatient (CLI) | payer MEDICARE ==
[2021-10-29 13:27] LABS: BILIRUBIN Negative (Negative); BLOOD Negative (Negative); CLARITY Clear (Clear); COLOR Yellow (Yellow); GLUCOSE Negative (Negative); KETONE Negative (Negative); LEUKO ESTERASE 3+ (Negative); NITRITE Negative (Negative); PH 6.5 (4.5-8.0); UROBILINOGEN 0.2 E.U./dl (0.0-1.0)
[2021-10-29 13:28] LABS: BASO # 0.1 10*3/uL (0.0-0.1); BASO % 0.7 % (0.0-1.0); EOS # 0.1 10*3/uL (0.0-0.4); EOS % 1.3 % (1.0-4.0); HEMATOCRIT 38.5 % (37.0-47.0); LYMPH # 0.9 10*3/uL (1.3-4.4); LYMPH % 10.5 % (27.0-41.0); MEAN CELL VOLUME 83.3 fl (81.0-99.0); MEAN CORPUSCULAR HGB CONC 31.2 g/dl (33.0-37.0); MONO # 0.6 10*3/uL (0.1-1.0); MONO % 6.7 % (3.0-9.0); NEUT % 80.5 % (47.0-73.0); PLATELET COUNT AUTOMATED 261 10*3/uL (130-400); RED BLOOD COUNT 4.62 10*6/uL (4.10-5.10); RED CELL DISTRI WIDTH 14.1 % (0-14.5); WHITE BLOOD COUNT 8.7 10*3/uL (4.8-10.8)
[2021-10-29 13:37] LABS: WBC TNTC wbc/hpf (0-5)
[2021-10-29 13:38] LABS: BACTERIA 3+
[2021-10-29 13:43] LABS: ALKALINE PHOSPHATASE 106 U/L (45-117); BUN 17 mg/dl (7-24); CHLORIDE 110 mmol/L (98-107); CREATININE 0.99 mg/dL (0.55-1.02); POTASSIUM 3.9 mmol/L (3.5-5.1); SGOT/AST 11 IU/L (3-35); SGPT/ALT 12 U/L (12-78); SODIUM 142 mmol/L (136-145); T3 UPTAKE 30 % (31-39); TOTAL PROTEIN 7.2 gm/dL (6.4-8.2)
[2021-10-29 13:46] LABS: THYROXINE (T4) TOTAL 12.8 ug/dl (4.8-13.9)
== END | disposition home or self-care (01) ==
LOC: LAB 12:38 → US 13:30
PROVIDERS: ATTEND Urology
DX: N20.0 Calculus of kidney (principal); E83.50 Unspecified disorder of calcium metabolism; N28.1 Cyst of kidney, acquired

== ENCOUNTER 2022-04-13 10:31 | Emergency (ER) | payer MEDICARE ==
[~2022-04-13] VITALS: Ht 157.4 cm; Wt 39.0 kg
[~2022-04-13 10:31] MED LIST changes: +DOXYCYCLINE HY100 M3 PO; +OXYBUTYNIN5 MG PO
[2022-04-13 11:40] LABS: ABG BASE EXCESS -2.5 mmol/L (-2.0-2.0); ARTERIAL BLOOD GAS PH 7.376 (7.35-7.45); ARTERIAL BLOOD GAS PO2 129.1 (80-90)
[2022-04-13 11:44] LABS: BASO # 0.1 10*3/uL (0.0-0.1); BASO % 0.6 % (0.0-1.0); EOS # 0.1 10*3/uL (0.0-0.4); EOS % 0.9 % (1.0-4.0); HEMATOCRIT 36.1 % (37.0-47.0); LYMPH # 0.6 10*3/uL (1.3-4.4); LYMPH % 6.9 % (27.0-41.0); MEAN CORPUSCULAR HGB 25.7 pg (27.0-31.0); MEAN CORPUSCULAR HGB CONC 32.1 g/dl (33.0-37.0); MEAN PLATELET VOLUME 11.2 fl (9.6-12.3); MONO # 0.6 10*3/uL (0.1-1.0); MONO % 6.4 % (3.0-9.0); NEUT # 7.4 10*3/uL (2.3-7.9); PLATELET COUNT AUTOMATED 223 10*3/uL (130-400); RED BLOOD COUNT 4.51 10*6/uL (4.10-5.10); RED CELL DISTRI WIDTH 14.9 % (0-14.5); WHITE BLOOD COUNT 8.7 10*3/uL (4.8-10.8)
[2022-04-13 11:56] LABS: ACT PARTIAL THROMBO TIME 29.2 SECONDS (20.0-32.1)
[2022-04-13 12:29] LABS: ALKALINE PHOSPHATASE 80 U/L (46-116); BUN 14 mg/dl (9-23); CHLORIDE 104 mmol/L (98-107); CREATININE 1.12 mg/dL (0.55-1.02); POTASSIUM 3.8 mmol/L (3.4-5.1); SODIUM 138 mmol/L (136-145); TOTAL PROTEIN 7.1 gm/dL (6.0-8.0)
[2022-04-13 13:20] LABS: SGPT/ALT 12 U/L (12-78)
[2022-04-13] MEDS ORDERED: PREDNISONE20 M1 PO (15:29)
== END 2022-04-13 15:42 | disposition home or self-care (01) ==
LOC: ED 10:31
PROVIDERS: Family Medicine
DX: J44.1 Chronic obstructive pulmonary disease with (acute) exacerbation (principal); Z90.710 Acquired absence of both cervix and uterus; Z87.891 Personal history of nicotine dependence; Z88.1 Allergy status to other antibiotic agents; Z98.49 Cataract extraction status, unspecified eye; Z20.822 Contact with and (suspected) exposure to COVID-19; Z98.890 Other specified postprocedural states

== ENCOUNTER → 2022-06-01 | Day surgery (SDC) | payer MEDICARE ==
[~2022-06-01] VITALS: Ht 157.4 cm; Wt 40.8 kg
[~2022-06-01] MED LIST changes: +OCUFLOX 0.3% 5 M5 ML OP; +PRED FORTE5 ML OP; +PREDNISONE20 M1 PO; +VENTOLIN 02.5 MG/3 M INH
[2022-06-01 10:35] VITALS: BP 112/50
[2022-06-01 12:06] VITALS: BP 135/50
== END | disposition home or self-care (01) ==
LOC: SDC 05-27 09:30
PROVIDERS: ATTEND Ophthalmology
DX: H25.812 Combined forms of age-related cataract, left eye (principal); J44.9 Chronic obstructive pulmonary disease, unspecified; Z87.891 Personal history of nicotine dependence; Z79.899 Other long term (current) drug therapy; Z88.1 Allergy status to other antibiotic agents

== ENCOUNTER → 2022-07-25 | Outpatient (CLI) | payer MEDICARE ==
[2022-07-25 12:18] LABS: HEMATOCRIT 36.3 % (37.0-47.0); MEAN CELL VOLUME 82.9 fl (81.0-99.0); MEAN CORPUSCULAR HGB 24.9 pg (27.0-31.0); MEAN PLATELET VOLUME 10.7 fl (9.6-12.3); RED BLOOD COUNT 4.38 10*6/uL (4.10-5.10); WHITE BLOOD COUNT 7.1 10*3/uL (4.8-10.8)
[2022-07-25 12:50] LABS: POTASSIUM 4.2 mmol/L (3.4-5.1); TOTAL PROTEIN 6.8 gm/dL (6.0-8.0)
== END | disposition home or self-care (01) ==
LOC: LAB 00:35
PROVIDERS: ATTEND Physician Assistant
DX: J44.9 Chronic obstructive pulmonary disease, unspecified (principal); K25.9 Gastric ulcer, unspecified as acute or chronic, without hemorrhage or perforation; Z79.899 Other long term (current) drug therapy

== ENCOUNTER 2023-08-29 09:00 | Emergency (ER) | payer MEDICARE ==
[~2023-08-29] VITALS: Ht 157.4 cm; Wt 35.4 kg
[~2023-08-29 09:00] MED LIST changes: +AMPICILLIN2 GM IV; +CALCIUM CARBON200 MG PO; +LOPERAMIDE HCL2 MG PO
[2023-08-29 09:19] LABS: BASO # 0.1 10*3/uL (0.0-0.1); BASO % 1.5 % (0.0-1.0); EOS # 0.6 10*3/uL (0.0-0.4); EOS % 7.7 % (1.0-4.0); HEMATOCRIT 34.5 % (37.0-47.0); LYMPH # 0.8 10*3/uL (1.3-4.4); LYMPH % 10.4 % (27.0-41.0); MEAN CORPUSCULAR HGB 27.2 pg (27.0-31.0); MEAN CORPUSCULAR HGB CONC 29.9 g/dl (33.0-37.0); MEAN PLATELET VOLUME 11.2 fl (9.6-12.3); MONO # 0.5 10*3/uL (0.1-1.0); MONO % 6.5 % (3.0-9.0); NEUT # 5.9 10*3/uL (2.3-7.9); NEUT % 73.7 % (47.0-73.0); PLATELET COUNT AUTOMATED 212 10*3/uL (130-400); RED BLOOD COUNT 3.79 10*6/uL (4.10-5.10); RED CELL DISTRI WIDTH 15.4 % (0-14.5)
[2023-08-29 09:41] LABS: ALKALINE PHOSPHATASE 71 U/L (46-116); CHLORIDE 110 mmol/L (98-107); LIPASE 48 U/L (12-53); SGPT/ALT 9 U/L (5-49); TOTAL PROTEIN 5.2 gm/dL (6.0-8.0)
[2023-08-29 09:46] LABS: BUN < 5 mg/dl (9-23)
[2023-08-29 09:50] LABS: POTASSIUM 2.3 mmol/L (3.4-5.1)
[2023-08-29] MEDS ORDERED: POTASSIUM CHLORIDE IN WATER 100 ML IV SCH (10:00)
[2023-08-29] MEDS ORDERED: MAGNESIUM SULFATE 100 ML IV ONE (10:00)
[2023-08-29 16:22] LABS: CHLORIDE 108 mmol/L (98-107); POTASSIUM 2.9 mmol/L (3.4-5.1)
[2023-08-29 16:26] LABS: BUN < 5 mg/dl (9-23)
[2023-08-29] MEDS ORDERED: POTASSIUM CHLORIDE 20 MEQ TAB PO ONE (16:50)
[2023-08-29] MEDS ORDERED: K-TAB20 MEQ PO (17:40)
== END 2023-08-29 18:48 | disposition short-term general hospital (02) ==
LOC: ED 09:00
PROVIDERS: Internal Medicine
DX: E87.6 Hypokalemia (principal); E83.42 Hypomagnesemia; J44.9 Chronic obstructive pulmonary disease, unspecified; Z87.442 Personal history of urinary calculi; Z88.1 Allergy status to other antibiotic agents; Z90.710 Acquired absence of both cervix and uterus; Z98.890 Other specified postprocedural states; Z87.891 Personal history of nicotine dependence

== ENCOUNTER → 2023-10-31 | Outpatient (CLI) | payer MEDICARE ==
[~2023-10-31] MED LIST changes: +IOHEXOL 300 MG/ML 100 ML VIAL IV ONE; +K-TAB20 MEQ PO
== END | disposition home or self-care (01) ==
LOC: CT 13:00
PROVIDERS: ATTEND Physician Assistant
DX: N20.0 Calculus of kidney (principal); N13.30 Unspecified hydronephrosis; K80.20 Calculus of gallbladder without cholecystitis without obstruction; J43.9 Emphysema, unspecified; R63.4 Abnormal weight loss; F17.201 Nicotine dependence, unspecified, in remission

== ENCOUNTER → 2023-11-07 | Outpatient (CLI) | payer MEDICARE ==
[~2023-11-07] MED LIST changes: -IOHEXOL 300 MG/ML 100 ML VIAL IV ONE
== END | disposition home or self-care (01) ==
LOC: CT 01:45
PROVIDERS: ATTEND Physician Assistant
DX: Z12.2 Encounter for screening for malignant neoplasm of respiratory organs (principal); R63.4 Abnormal weight loss; F17.201 Nicotine dependence, unspecified, in remission; I25.10 Atherosclerotic heart disease of native coronary artery without angina pectoris; J43.9 Emphysema, unspecified; R91.1 Solitary pulmonary nodule

== ENCOUNTER 2023-11-16 14:30 | Inpatient (IN) | payer MEDICARE ==
[~2023-11-16] VITALS: Ht 157.4 cm; Wt 36.4 kg
[2023-11-16] MEDS ORDERED: SODIUM CHLORIDE 0.9% 1,000 ML IV ONE ×2 (14:35→16:05)
[2023-11-16] MEDS ORDERED: AZITHROMYCIN 250 MG TAB PO ONE (14:40)
[2023-11-16] MEDS ORDERED: MAGNESIUM SULFATE 50 ML IV ONE (14:40)
[2023-11-16] MEDS ORDERED: methylPREDNISolone sod succ 125 MG VIAL IV ONE (14:40)
[2023-11-16] MEDS ORDERED: Ceftriaxone Sodium 1 GM/10 ML SYR IV ONE (14:40)
[2023-11-16] MEDS ORDERED: Albuterol Sulfate 2.5 MG/3 ML VIAL NEB ONE (14:40)
[2023-11-16 15:00] LABS: BASO # 0.1 10*3/uL (0.0-0.1); BASO % 0.5 % (0.0-1.0); EOS # 0.2 10*3/uL (0.0-0.4); EOS % 1.2 % (1.0-4.0); HEMATOCRIT 31.3 % (37.0-47.0); LYMPH # 0.9 10*3/uL (1.3-4.4); LYMPH % 6.8 % (27.0-41.0); MEAN CELL VOLUME 88.4 fl (81.0-99.0); MEAN CORPUSCULAR HGB 27.1 pg (27.0-31.0); MEAN CORPUSCULAR HGB CONC 30.7 g/dl (33.0-37.0); MEAN PLATELET VOLUME 8.6 fl (9.6-12.3); MONO # 0.6 10*3/uL (0.1-1.0); MONO % 4.6 % (3.0-9.0); NEUT # 11.5 10*3/uL (2.3-7.9); NEUT % 84.9 % (47.0-73.0); PLATELET COUNT AUTOMATED 481 10*3/uL (130-400); RED BLOOD COUNT 3.54 10*6/uL (4.10-5.10); RED CELL DISTRI WIDTH 15.5 % (0-14.5); WHITE BLOOD COUNT 13.6 10*3/uL (4.8-10.8)
[2023-11-16 15:09] VITALS: BP 113/87
[2023-11-16 15:17] LABS: ALKALINE PHOSPHATASE 151 U/L (46-116); BUN 12 mg/dl (9-23); CHLORIDE 113 mmol/L (98-107); POTASSIUM 3.4 mmol/L (3.4-5.1); TOTAL PROTEIN 6.4 gm/dL (6.0-8.0)
[2023-11-16 15:21] LABS: SGPT/ALT < 7 U/L (5-49)
[2023-11-16] MEDS ORDERED: Magnesium Hydroxide 30 ML UDC PO PRN (17:10)
[2023-11-16] MEDS ORDERED: ACETAMINOPHEN 325 MG TAB PO PRN (17:10)
[2023-11-16] MEDS ORDERED: Ondansetron Hydrochloride 4 MG/2 ML VIAL IV PRN (17:10)
[2023-11-16] MEDS ORDERED: ACETAMINOPHEN 650 MG SUPP R PRN (17:10)
[2023-11-16] MEDS ORDERED: BISACODYL 10 MG SUPP R PRN (17:10)
[2023-11-16] MEDS ORDERED: Acetaminophen/Hydrocodone 5 MG/325 MG TABLET PO PRN (17:10)
[2023-11-16] MEDS ORDERED: BISACODYL 5 MG TAB PO PRN (17:10)
[2023-11-16] MEDS ORDERED: Albuterol Sulf/Ipratropium 3 ML VIAL NEB PRN (17:25)
[2023-11-16] MEDS ORDERED: Pantoprazole Sodium 40 MG TAB PO SCH (18:00)
[2023-11-16] MEDS ORDERED: Vancomycin Hydrochloride 1,000 MG VIAL IV SCH (19:30)
[2023-11-16 19:53] VITALS: BP 128/63
[2023-11-16] MEDS ORDERED: Piperacillin Sodium/Tazobact 2.25 GM in SODIUM CHLORIDE 0.9% 50 ML IV SCH (20:00)
[2023-11-16] MEDS ORDERED: HEPARIN SODIUM 5,000 UNIT/ML VIAL SC SCH (22:00)
[2023-11-17] MEDS ORDERED: methylPREDNISolone sod succ 40 MG VIAL IV SCH
[2023-11-17 01:13] VITALS: BP 161/79
[2023-11-17 07:18] LABS: HEMATOCRIT 28.9 % (37.0-47.0); MEAN CELL VOLUME 86.3 fl (81.0-99.0); MEAN CORPUSCULAR HGB 27.5 pg (27.0-31.0); MEAN CORPUSCULAR HGB CONC 31.8 g/dl (33.0-37.0); PLATELET COUNT AUTOMATED 499 10*3/uL (130-400); RED BLOOD COUNT 3.35 10*6/uL (4.10-5.10); RED CELL DISTRI WIDTH 15.7 % (0-14.5); WHITE BLOOD COUNT 10.8 10*3/uL (4.8-10.8)
[2023-11-17 07:27] LABS: MANUAL DIFF REFLEX YES
[2023-11-17 07:28] LABS: ACT PARTIAL THROMBO TIME 28.3 SECONDS (20.0-32.1)
[2023-11-17 07:56] LABS: BUN 10 mg/dl (9-23); CHLORIDE 115 mmol/L (98-107); MICROCYTOSIS SLIGHT; PLATELET SUFFICIENCY HIGH (NORMAL); POTASSIUM 3.5 mmol/L (3.4-5.1); TOTAL CELLS COUNTED 100 #CELLS
[2023-11-17 08:00] VITALS: BP 120/56
[2023-11-17] MEDS ORDERED: Vancomycin Hydrochloride 500 MG in SODIUM CHLORIDE 0.9% 100 ML IV SCH (10:00)
[2023-11-17 12:00] VITALS: BP 113/65
[2023-11-17] MEDS ORDERED: Ceftriaxone Sodium 1 GM in SYRINGE INFUSION 10 ML IV SCH (15:00)
[2023-11-17 16:00] VITALS: BP 115/53
[2023-11-17] MEDS ORDERED: AZITHROMYCIN 250 ML IV SCH (16:00)
[2023-11-17 20:00] VITALS: BP 110/44
[2023-11-18] VITALS: BP 104/42
[2023-11-18 06:51] LABS: HEMATOCRIT 26.2 % (37.0-47.0); MEAN CELL VOLUME 86.2 fl (81.0-99.0); MEAN CORPUSCULAR HGB 27.6 pg (27.0-31.0); MEAN CORPUSCULAR HGB CONC 32.1 g/dl (33.0-37.0); MEAN PLATELET VOLUME 9.1 fl (9.6-12.3); PLATELET COUNT AUTOMATED 445 10*3/uL (130-400); RED BLOOD COUNT 3.04 10*6/uL (4.10-5.10); RED CELL DISTRI WIDTH 15.9 % (0-14.5); WHITE BLOOD COUNT 16.4 10*3/uL (4.8-10.8)
[2023-11-18 07:01] LABS: MANUAL DIFF REFLEX YES
[2023-11-18 07:26] LABS: PLATELET SUFFICIENCY HIGH (NORMAL); TOTAL CELLS COUNTED 100 #CELLS
[2023-11-18 07:27] LABS: BURR CELLS FEW; OVALOCYTES FEW
[2023-11-18 07:46] LABS: POTASSIUM 3.2 mmol/L (3.4-5.1)
[2023-11-18 08:00] VITALS: BP 120/60
[2023-11-18] MEDS ORDERED: POTASSIUM CHLORIDE 20 MEQ TAB PO ONE (09:00)
[2023-11-18 12:00] VITALS: BP 118/63
[2023-11-18 16:00] VITALS: BP 126/62
[2023-11-18 20:00] VITALS: BP 120/86
[2023-11-19] VITALS: BP 127/68
[2023-11-19 06:48] LABS: HEMATOCRIT 27.5 % (37.0-47.0); MEAN CELL VOLUME 88.1 fl (81.0-99.0); MEAN CORPUSCULAR HGB 27.6 pg (27.0-31.0); MEAN CORPUSCULAR HGB CONC 31.3 g/dl (33.0-37.0); PLATELET COUNT AUTOMATED 425 10*3/uL (130-400); RED BLOOD COUNT 3.12 10*6/uL (4.10-5.10); RED CELL DISTRI WIDTH 16.1 % (0-14.5)
[2023-11-19 07:03] LABS: MANUAL DIFF REFLEX YES
[2023-11-19 07:28] LABS: POTASSIUM 3.2 mmol/L (3.4-5.1)
[2023-11-19 07:38] LABS: PLATELET SUFFICIENCY HIGH (NORMAL); TOTAL CELLS COUNTED 100 #CELLS
[2023-11-19 07:39] LABS: ROULEAUX SLIGHT
[2023-11-19 08:00] VITALS: BP 133/56
[2023-11-19] MEDS ORDERED: POTASSIUM CHLORIDE 20 MEQ TAB PO SCH (10:00)
[2023-11-19] MEDS ORDERED: methylPREDNISolone sod succ 40 MG VIAL IV SCH (10:00)
[2023-11-19 12:00] VITALS: BP 118/62
[2023-11-19 16:00] VITALS: BP 133/66
[2023-11-19 20:00] VITALS: BP 135/70
[2023-11-20] VITALS: BP 130/70
[2023-11-20 07:26] LABS: POTASSIUM 4.7 mmol/L (3.4-5.1)
[2023-11-20 08:00] VITALS: BP 123/81
[2023-11-20 12:00] VITALS: BP 117/61
[2023-11-20] MEDS ORDERED: Doxycycline Hyclate 100 MG CAP PO SCH (12:30)
[2023-11-20] MEDS ORDERED: Amoxicillin/Clavulanate Pota 500 MG TAB PO SCH (12:30)
[2023-11-20 16:00] VITALS: BP 120/63
[2023-11-20] MEDS ORDERED: Vancomycin Hydrochloride 500 MG in SODIUM CHLORIDE 0.9% 100 ML IV SCH (16:00)
[2023-11-20 20:00] VITALS: BP 121/70
[2023-11-21] VITALS: BP 137/72
[2023-11-21 04:35] LABS: BASO % 0.2 % (0.0-1.0); EOS % 0.1 % (1.0-4.0); HEMATOCRIT 29.1 % (37.0-47.0); LYMPH # 0.9 10*3/uL (1.3-4.4); LYMPH % 6.6 % (27.0-41.0); MEAN CELL VOLUME 89.8 fl (81.0-99.0); MEAN CORPUSCULAR HGB 27.5 pg (27.0-31.0); MEAN CORPUSCULAR HGB CONC 30.6 g/dl (33.0-37.0); MEAN PLATELET VOLUME 9.1 fl (9.6-12.3); MONO # 0.6 10*3/uL (0.1-1.0); MONO % 4.6 % (3.0-9.0); NEUT # 11.5 10*3/uL (2.3-7.9); NEUT % 86.8 % (47.0-73.0); PLATELET COUNT AUTOMATED 414 10*3/uL (130-400); RED BLOOD COUNT 3.24 10*6/uL (4.10-5.10); RED CELL DISTRI WIDTH 16.1 % (0-14.5); WHITE BLOOD COUNT 13.2 10*3/uL (4.8-10.8)
[2023-11-21 04:59] LABS: BUN 12 mg/dl (9-23); CHLORIDE 113 mmol/L (98-107)
[2023-11-21 05:11] LABS: POTASSIUM 3.2 mmol/L (3.4-5.1)
[2023-11-21] MEDS ORDERED: POTASSIUM CHLORIDE 20 MEQ TAB PO ONE (07:05)
[2023-11-21 08:00] VITALS: BP 135/77
[2023-11-21] MEDS ORDERED: PREDNISONE10 MG PO (10:57)
[2023-11-21] MEDS ORDERED: AMOX-CLAV 875-1 EACH PO (10:57)
[2023-11-21] MEDS ORDERED: DOXYCYCLINE HY100 M3 PO (10:57)
[2023-11-21 12:00] VITALS: BP 136/64
== END 2023-11-21 13:27 | disposition home or self-care (01) | DRG 871 ==
LOC: ED 14:30 → 4E 16:33 → EDHOLD 16:33 → 4E 23:47
PROVIDERS: Emergency Medicine; Registered Nurse; Student in an Organized Health Care Education/Training Program; ADMIT Family Medicine; ATTEND Family Medicine
DX: A41.9 Sepsis, unspecified organism (principal); E43 Unspecified severe protein-calorie malnutrition; J15.69 Pneumonia due to other Gram-negative bacteria; J96.01 Acute respiratory failure with hypoxia; J69.0 Pneumonitis due to inhalation of food and vomit; J44.1 Chronic obstructive pulmonary disease with (acute) exacerbation; E87.20 Acidosis, unspecified; J44.0 Chronic obstructive pulmonary disease with (acute) lower respiratory infection; D61.818 Other pancytopenia; Z68.1 Body mass index [BMI] 19.9 or less, adult; N17.9 Acute kidney failure, unspecified; F41.1 Generalized anxiety disorder; K21.9 Gastro-esophageal reflux disease without esophagitis; M81.0 Age-related osteoporosis without current pathological fracture; E87.8 Other disorders of electrolyte and fluid balance, not elsewhere classified; N18.31 Chronic kidney disease, stage 3a; R73.9 Hyperglycemia, unspecified; I25.10 Atherosclerotic heart disease of native coronary artery without angina pectoris; Z79.899 Other long term (current) drug therapy; Z79.01 Long term (current) use of anticoagulants; Z90.710 Acquired absence of both cervix and uterus; Z79.2 Long term (current) use of antibiotics; Z88.8 Allergy status to other drugs, medicaments and biological substances; Z91.09 Other allergy status, other than to drugs and biological substances; Z87.891 Personal history of nicotine dependence; Z82.49 Family history of ischemic heart disease and other diseases of the circulatory system; Z83.3 Family history of diabetes mellitus

== ENCOUNTER → 2024-12-05 | Outpatient (CLI) | payer MEDICARE, MEDICAID ==
[~2024-12-05] MED LIST changes: +ALBUTEROL HFA 90 MCG; +AMOX-CLAV 875-1 EACH PO; +BROVANA15 MCG/2 M INH; +DOXYCYCLINE MO100 MG PO; +MEROPENEM-1 GM/50 ML IV; +MUCUS RELIEF600 MG PO; +Nystatin 100,000 UNI PO; +POTASSIUM99 M7 PO; +PULMICORT RESP0.5 M1 INH
== END | disposition home or self-care (01) ==
LOC: CT 13:45
PROVIDERS: ATTEND Urology
DX: N28.1 Cyst of kidney, acquired (principal); N20.0 Calculus of kidney; K80.20 Calculus of gallbladder without cholecystitis without obstruction